=== PATIENT | male | born 1985 | race Caucasian/White ===

== ENCOUNTER 2024-02-19 06:54 | Emergency (ER) | payer SELFPAY ==
[2024-02-19 06:55] VITALS: BP 158/102; PULSE 82; RESP 18; TEMP 37; O2SAT 98; BMI 34.4
[2024-02-19 06:59] VITALS: BP 152/106; PULSE 82; RESP 17; TEMP 37; O2SAT 98
[2024-02-19] MEDS: Ceftriaxone 500 MG Vial IM (08:22)
[2024-02-19] MEDS: Doxycycline 100 MG CAPSULE PO (08:22)
[2024-02-19 08:29] LABS: Bacteria 0 SEEN /hpf (None Seen); Mucous, Urine 0 SEEN /hpf (<or=2+); Red Blood Cells-Urine 0 SEEN /hpf (0-5); Squamous Epithelial Cells - UA 0 SEEN /hpf (0-5)
[2024-02-19 08:38] LABS: Color, Urine Yellow (Yellow); Glucose, Dipstick Normal (Normal); Ketone-Dipstick 5 mg/dl (Negative); Leukocyte Esterase-Dipstick 25 /ul (Negative); Nitrite-Dipstick Negative (Negative); Occult Blood-Urine Negative /ul (Negative); Protein-Dipstick 15 mg/dl (Negative); Specific Gravity, Urine 1.015 (1.002-1.030); Urine Bilirubin Dipstick Negative (Negative); Urine Clarity Clear (Clear); Urine Urobilinogen Normal (Normal); Urine pH 6.5 (5.0 - 8.0)
[2024-02-19 08:55] VITALS: BP 132/99; PULSE 84; RESP 18; O2SAT 99
[2024-02-19 09:01] LABS: White Blood Cells 0-5 SEEN /hpf (0-5)
[2024-02-19 09:34] VITALS: BP 132/99; PULSE 84; RESP 18; TEMP 36.6; O2SAT 99
== END 2024-02-19 09:34 | disposition home or self-care (01) ==
PROVIDERS: Emergency Provider Surgery; PCP Registered Nurse; Visit Provider Surgery
DX: A64 Unspecified sexually transmitted disease (principal); Z87.891 Personal history of nicotine dependence
CPT/HCPCS: 81001; 87491; 87591; 96372; 99282